=== PATIENT | female | born 1965 | race Two or more races ===

== ENCOUNTER 2017-01-08 07:00 | Day surgery (SDC) | payer OTHER ==
[~2017-01-08] VITALS: Ht 154.9 cm; Wt 73.9 kg
[2017-01-08 07:21] VITALS: BP 124/77
[2017-01-08 10:47] VITALS: BP 117/80
== END 2017-01-08 10:30 | disposition home or self-care (01) ==
LOC: DS 07:00 → OR 08:30 → GI 08:30 → DS 10:30
PROVIDERS: Internal Medicine Gastroenterology
PROC: 0DJD8ZZ Inspection of Lower Intestinal Tract, Via Natural or Artificial Opening Endoscopic (ICD-10-PCS; principal; 2017-01-08 08:30)
DX: Z12.11 Encounter for screening for malignant neoplasm of colon (principal)
CPT/HCPCS: 45378; J1200; J1610; J2250; J2310; J3010; J3490